=== PATIENT | male | born 1945 | race Caucasian/White ===

== ENCOUNTER 2019-12-07 11:10 | Outpatient (REF) | payer MEDICARE, OTHER, SELFPAY ==
[2019-12-07 14:11] LABS: Hematocrit 44.3 % (42-52); Hemoglobin 14.9 g/dl (14.0-18.0); Mean Corpuscular HGB Conc 33.6 g/dl (31.0-36.0); Mean Corpuscular Volume 95.1 fL (80-98); Mean Platelet Volume 12.8 fL (9.4-12.4); Platelet Count 210 X10*3/uL (160-400); Red Blood Count 4.66 X10*6/uL (4.60-5.80); Red Cell Distribution Width 12.8 % (11.0-16.0); White Blood Count 7.3 X10*3/uL (4.8-10.8)
[2019-12-07 14:22] LABS: Glucose Urine UA NEG (NEG); Leukocyte Esterase Urine NEG (NEG); Nitrite Urine NEG (NEG); Specific Gravity - Urine 1.015 (1.005-1.025); Urine Blood NEG (NEG); Urine Ketones NEG (NEG); Urine Protein 1+ MG/DL (NEG-TRACE)
[2019-12-07 14:27] LABS: Appearance Urine CLEAR; Color Urine YELLOW
[2019-12-07 14:42] LABS: Alanine Aminotransferase 17 U/L (0-40); Albumin Level 4.6 g/dL (3.5-5.0); Alkaline Phosphatase 70 U/L (39-117); Anion Gap 16 (12-20); Aspartate Amino Transferase 25 U/L (5-37); Bilirubin Total 1.5 mg/dL (0.0-1.0); Blood Urea Nitrogen 10 mg/dL (9-16); Calcium 9.6 mg/dL (8.4-10.2); Carbon Dioxide 27 mmol/L (22-29); Chloride 104 mmol/L (96-108); Cholesterol 196 mg/dL; Estimated Glomerular Filt Rate > 60; Glucose Fasting 108 mg/dL (60-99); HDL Cholesterol 69 mg/dL; LDL Cholesterol Calculated 107 mg/dl; Potassium 5.7 mmol/l (3.3-5.1); Sodium 141 mmol/L (135-145); Total Protein 7.4 g/dL (6.5-8.0); Triglycerides 102 mg/dL
[2019-12-07 15:17] LABS: Prostate Specific Antigen Scr 0.49 ng/mL (<0.05-4.0)
[2019-12-07 15:18] LABS: RBC Urine 0 /HPF (0); WBC Urine 0 /HPF (0-4)
== END 2019-12-07 11:11 | disposition home or self-care (01) ==
LOC: HO.10HDL 11:10
PROVIDERS: Visit Provider Internal Medicine
DX: Z00.00 Encounter for general adult medical examination without abnormal findings (principal); I10 Essential (primary) hypertension; Z12.5 Encounter for screening for malignant neoplasm of prostate
CPT/HCPCS: 36415; 80053; 80061; 81001; 81003; 82306; 84153; 85027

== ENCOUNTER 2019-12-25 17:06 | Outpatient (REF) | payer MEDICARE, OTHER, SELFPAY ==
[2019-12-25 19:02] LABS: Alanine Aminotransferase 19 U/L (0-40); Albumin Level 4.3 g/dL (3.5-5.0); Alkaline Phosphatase 68 U/L (39-117); Anion Gap 14 (12-20); Aspartate Amino Transferase 27 U/L (5-37); Bilirubin Total 0.7 mg/dL (0.0-1.0); Blood Urea Nitrogen 15 mg/dL (9-16); Calcium 9.5 mg/dL (8.4-10.2); Carbon Dioxide 29 mmol/L (22-29); Chloride 103 mmol/L (96-108); Estimated Glomerular Filt Rate > 60; Glucose Random 86 mg/dL (60-115); Potassium 5.9 mmol/l (3.3-5.1); Sodium 140 mmol/L (135-145); Total Protein 7.1 g/dL (6.5-8.0)
[2019-12-25 19:10] LABS: Prostate Specific Antigen 0.41 ng/mL (<0.05-4.0)
== END 2019-12-25 17:07 | disposition home or self-care (01) ==
LOC: HO.LAB 17:06
PROVIDERS: Visit Provider Internal Medicine
DX: Z12.5 Encounter for screening for malignant neoplasm of prostate (principal); N40.0 Benign prostatic hyperplasia without lower urinary tract symptoms; R79.89 Other specified abnormal findings of blood chemistry
CPT/HCPCS: 80053; 84153

== ENCOUNTER 2020-12-26 12:00 | Outpatient (REF) | payer MEDICARE, OTHER, SELFPAY ==
[2020-12-26 14:02] LABS: MANUAL DIFF FLAG NO
[2020-12-26 14:04] LABS: Basophils Absolute Auto 0.1 X10*3/uL (0.0-0.2); Eosinophils Absolute Auto 0.2 X10*3/uL (0.0-0.4); Eosinophils Percent Auto 3.5 % (0-4); Hematocrit 41.6 % (42-52); Hemoglobin 13.8 g/dl (14.0-18.0); Imm Gran Abs Auto 0.02 X10*3/uL (0.00-0.03); Imm Gran Pct Auto 0.3 % (0.0-0.4); Lymphocytes Absolute Auto 1.4 X10*3/uL (1.2-4.9); Lymphocytes Percent Auto 20.8 % (20-40); Mean Corpuscular HGB Conc 33.2 g/dl (31.0-36.0); Mean Corpuscular Hemoglobin 31.7 pg (27.0-33.0); Mean Corpuscular Volume 95.4 fL (80-98); Monocytes Absolute Auto 0.7 X10*3/uL (0.1-1.2); Monocytes Percent Auto 9.5 % (2-11); Neutrophils Absolute Auto 4.5 X10*3/uL (2.0-8.3); Neutrophils Percent Auto 64.9 % (45-73); Platelet Count 192 X10*3/uL (160-400); Red Blood Count 4.36 X10*6/uL (4.60-5.80); Red Cell Distribution Width 12.6 % (11.0-16.0); White Blood Count 6.9 X10*3/uL (4.8-10.8)
[2020-12-26 14:46] LABS: Alanine Aminotransferase 18 U/L (0-40); Albumin Level 4.2 g/dL (3.5-5.0); Alkaline Phosphatase 67 U/L (39-117); Anion Gap 13 (12-20); Aspartate Amino Transferase 27 U/L (5-37); Bilirubin Total 1.1 mg/dL (0.0-1.0); Blood Urea Nitrogen 16 mg/dL (9-16); Calcium 9.6 mg/dL (8.4-10.2); Carbon Dioxide 27 mmol/L (22-29); Chloride 103 mmol/L (96-108); Cholesterol 167 mg/dL; Estimated Glomerular Filt Rate > 60; Glucose Fasting 93 mg/dL (60-99); HDL Cholesterol 65 mg/dL; LDL Cholesterol Calculated 89 mg/dl; Potassium 5.4 mmol/L (3.3-5.1); Sodium 138 mmol/L (135-145); Total Protein 6.8 g/dL (6.5-8.0); Triglycerides 66 mg/dL
== END 2020-12-26 12:01 | disposition home or self-care (01) ==
LOC: HO.10HDL 12:00
PROVIDERS: Visit Provider Internal Medicine
DX: Z12.5 Encounter for screening for malignant neoplasm of prostate (principal); I10 Essential (primary) hypertension; E78.00 Pure hypercholesterolemia, unspecified
CPT/HCPCS: 36415; 80053; 80061; 84153; 85025

== ENCOUNTER 2021-12-01 12:57 | Outpatient (REF) | payer MEDICARE, OTHER, SELFPAY ==
[2021-12-01 13:43] LABS: MANUAL DIFF FLAG NO
[2021-12-01 13:47] LABS: Basophils Absolute Auto 0.1 X10*3/uL (0.0-0.2); Basophils Percent Auto 1.3 % (0-2); Eosinophils Absolute Auto 0.2 X10*3/uL (0.0-0.4); Eosinophils Percent Auto 3.3 % (0-4); Hemoglobin 13.7 g/dl (14.0-18.0); Imm Gran Abs Auto 0.02 X10*3/uL (0.00-0.03); Imm Gran Pct Auto 0.3 % (0.0-0.4); Lymphocytes Absolute Auto 1.3 X10*3/uL (1.2-4.9); Lymphocytes Percent Auto 20.8 % (20-40); Mean Corpuscular HGB Conc 33.4 g/dl (31.0-36.0); Mean Corpuscular Hemoglobin 31.6 pg (27.0-33.0); Mean Corpuscular Volume 94.7 fL (80.0-98.0); Mean Platelet Volume 12.1 fL (9.4-12.4); Monocytes Absolute Auto 0.7 X10*3/uL (0.1-1.2); Monocytes Percent Auto 10.9 % (2-11); Neutrophils Percent Auto 63.4 % (45-73); Platelet Count 175 X10*3/uL (160-400); Red Blood Count 4.33 X10*6/uL (4.60-5.80); Red Cell Distribution Width 12.6 % (11.0-16.0); White Blood Count 6.3 X10*3/uL (4.8-10.8)
[2021-12-01 14:33] LABS: Alanine Aminotransferase 16 U/L (0-40); Albumin Level 4.3 g/dL (3.5-5.0); Alkaline Phosphatase 58 U/L (39-117); Anion Gap 16 (12-20); Aspartate Amino Transferase 25 U/L (5-37); Bilirubin Total 0.9 mg/dL (0.0-1.0); Blood Urea Nitrogen 14 mg/dL (9-16); Calcium 9.4 mg/dL (8.4-10.2); Carbon Dioxide 25 mmol/L (22-29); Chloride 104 mmol/L (96-108); Cholesterol 183 mg/dL; Estimated Glomerular Filt Rate > 60; Glucose Fasting 97 mg/dL (60-99); HDL Cholesterol 70 mg/dL; LDL Cholesterol Calculated 96 mg/dl; Potassium 4.8 mmol/L (3.3-5.1); Sodium 140 mmol/L (135-145); Total Protein 6.7 g/dL (6.5-8.0); Triglycerides 86 mg/dL
[2021-12-01 14:57] LABS: Prostate Specific Antigen Scr 0.28 ng/mL (<0.05-4.0)
== END 2021-12-01 12:58 | disposition home or self-care (01) ==
LOC: HO.10HDL 12:57
PROVIDERS: Visit Provider Internal Medicine
DX: I10 Essential (primary) hypertension (principal); E78.00 Pure hypercholesterolemia, unspecified; I35.0 Nonrheumatic aortic (valve) stenosis; Z12.5 Encounter for screening for malignant neoplasm of prostate
CPT/HCPCS: 36415; 80053; 80061; 84153; 85025

== ENCOUNTER 2022-02-24 15:47 | Outpatient (REF) | payer MEDICARE, OTHER, SELFPAY ==
--- NOTE | ~2022-02-24 | XR_ITS ---
EXAMINATION: XR WRIST, RIGHT CLINICAL INFORMATION: Right wrist pain. COMPARISON: None. TECHNIQUE: 4 views of the right wrist. FINDINGS: There is significant narrowing with marginal spurring and sclerosis about the 1st carpometacarpal joint. No acute fracture or dislocation is evident. XR/XR wrist RT min 3V IMPRESSION: Significant degenerative change of the 1st carpometacarpal joint.
== END 2022-02-24 15:48 | disposition home or self-care (01) ==
LOC: HO.XRAY 15:47
PROVIDERS: PCP Internal Medicine; Visit Provider Internal Medicine
DX: M25.531 Pain in right wrist (principal)
CPT/HCPCS: 73110

== ENCOUNTER 2022-08-28 13:51 | Outpatient (REF) | payer MEDICARE, OTHER, SELFPAY ==
[2022-08-28 14:13] LABS: MANUAL DIFF FLAG NO
[2022-08-28 14:26] LABS: Basophils Absolute Auto 0.1 X10*3/uL (0.0-0.2); Eosinophils Absolute Auto 0.2 X10*3/uL (0.0-0.4); Eosinophils Percent Auto 1.8 % (0-4); Hematocrit 41.9 % (42.0-52.0); Imm Gran Abs Auto 0.07 X10*3/uL (0.00-0.03); Imm Gran Pct Auto 0.6 % (0.0-0.4); Lymphocytes Absolute Auto 1.6 X10*3/uL (1.2-4.9); Lymphocytes Percent Auto 14.2 % (20-40); Mean Corpuscular HGB Conc 33.4 g/dl (31.0-36.0); Mean Corpuscular Hemoglobin 32.1 pg (27.0-33.0); Mean Corpuscular Volume 96.1 fL (80.0-98.0); Mean Platelet Volume 11.8 fL (9.4-12.4); Monocytes Absolute Auto 1.1 X10*3/uL (0.1-1.2); Monocytes Percent Auto 9.9 % (2-11); Neutrophils Absolute Auto 7.9 x10*3/uL (2.0-8.3); Neutrophils Percent Auto 72.5 % (45-73); Platelet Count 182 X10*3/uL (160-400); Red Blood Count 4.36 X10*6/uL (4.60-5.80); Red Cell Distribution Width 12.6 % (11.0-16.0); White Blood Count 10.9 X10*3/uL (4.8-10.8)
[2022-08-28 15:07] LABS: Alanine Aminotransferase 16 U/L (0-40); Albumin Level 4.1 g/dL (3.5-5.0); Alkaline Phosphatase 66 U/L (39-117); Anion Gap 12 (12-20); Aspartate Amino Transferase 24 U/L (5-37); Bilirubin Total 1.4 mg/dL (0.0-1.0); Blood Urea Nitrogen 15 mg/dL (9-16); Carbon Dioxide 28 mmol/L (22-29); Chloride 104 mmol/L (96-108); Estimated Glomerular Filt Rate > 60; Glucose Random 83 mg/dL (60-115); Iron 77 mcg/dL (45-160); Percent Iron Saturation 26 % (15-50); Potassium 4.6 mmol/L (3.3-5.1); Sodium 139 mmol/L (135-145); Total Iron Binding Capacity 299 mcg/dL (228-428); Total Protein 6.9 g/dL (6.5-8.0); Unsaturated Iron Binding 222 ug/dL
== END 2022-08-28 13:52 | disposition home or self-care (01) ==
LOC: HO.LAB 13:51
PROVIDERS: PCP Internal Medicine; Visit Provider Internal Medicine
DX: D64.9 Anemia, unspecified (principal); R63.4 Abnormal weight loss; E78.00 Pure hypercholesterolemia, unspecified
CPT/HCPCS: 36415; 80053; 83540; 85025

== ENCOUNTER 2022-11-05 03:59 | Emergency (ER) | payer MEDICARE, OTHER, SELFPAY ==
--- NOTE | 2022-11-05 06:52 | ED_ITS ---
HPI - Chest Pain General Stated Complaint: Chest Pain Time Seen by Provider: 11/05/22 06:39 Source: patient Mode of arrival: ambulatory Limitations: no limitations History of Present Illness HPI narrative: 77 year old male with history of aortic stenosis and hyperlipidemia, on lisinopril and pravastatin, followed by science analyst, presents to ER with for evaluation of intermittent chest tightness. Patient states that since Friday 11/03, he has had 3 episodes of what feels like a dull squeeze with tingling localized to upper chest, bilateral shoulders, and radiating through arms stopping at elbows. Reports that the episodes last a few minutes and have occurred with rest. Reports the sensation came on last night while turning in bed, unsure if it awoke him. Reports the sensation has completely resolved at this point. Denies any associated symptoms including sweating, lightheadedness, palpitations, dyspnea, shortness of breath, leg swelling, pain elsewhere. Reports a remote history of similar episodes nearly 20 years ago, though a diagnosis was never made. Reports that he works out consistently, has not recently changed his routine. Reports he takes aspirin occasionally, though he stopped taking it a couple weeks ago. Denies any smoking history. Occasional alcohol intake. No cardiac surgeries or family history of sudden cardiac . MD complaint: chest discomfort Pertinent past history: other (aortic stenosis) Onset (ago): day(s) Timing of current episode: episodic and now resolved Prior episodes: Yes Onset: during rest Pain location: other (Upper chest, bilateral upper extremities) Pain radiation: left shoulder, left scapula and other (Radiates through bilateral UE, stopping at elbows) Severity: similar to previous episodes Quality: tightness, aching and dull Related Data Allergies Allergy/AdvReac Type Severity Reaction Status Date / Time No Known Allergies Allergy Unverified 11/16/19 14:43 Review of Systems 2 Review of Systems: Yes all other systems are reviewed and are negative [facility] Social History Social History Advance Directives: Yes Advance Directives on File: Yes Advance Directives Date on File: 12/07/19 Physical Exam 2 Const: General: cooperative, healthy appearing, comfortable and no acute distress Nutritional Appearance: average body habitus O rientation/consciousness: patient oriented x3 Resp: Effort & Inspection: normal respiratory effort and able to speak in complete sentences Auscultation: clear to auscultation bilaterally Cardio: Rate: regular rate Rhythm: regular rhythm Heart sounds: Murmur heart sound present (Blowing systolic murmur in right upper sternal border) GI: Palpation (GI): Soft to palpation Skin: Other: Skin is pink, warm, dry. Neuro: General: patient oriented x3 Extrem: General: Yes normal to inspection and Yes no pedal edema Medical Decision Making Medical Decision Making MDM Narrative: 77 year old male with history of aortic stenosis and hyperlipidemia presents for evaluation of intermittent chest tightness, currently resolved. Physical exam reveals comfortable-appearing, fully-oriented male speaking in full sentences. Skin is pink, warm, dry. Systolic murmur appreciated in right upper sternal border. Otherwise regular rate, rhythm. Lung sounds clear to ausculation. Workup including troponins, CBC, CMP unremarkable. Heart score of 3. EKG x2 show no ST segment elevation or depression. Patient would like to go home and follow up with his science analyst Will discharge home with instructions to follow up with science analyst for outpatient echocardiogram & further evaluation, planning for TAVR in the future. Differential Diagnosis Differential Diagnoses: The differential diagnosis associated with the presentation includes STEMI, NSTEMI, unstable angina, atrial fibrillation, other arrhythmias, pulmonary embolism, SVC syndrome, cervical radiculopathy Admission/Observation Consideration of admission/observation: Escalation of care including admission/observation considered Lab Data [facility] Lab Attestation statement: I reviewed the patient's lab results. trop negative 11/05/22 04:36 11/05/22 04:36 Labs: Lab Results 11/05/22 Range/Units 04:36 WBC 7.0 (4.8-10.8) X10*3/uL RBC 4.32 L (4.60-5.80) X10*6/uL Hgb 13.9 L (14.0-18.0) g/dl Hct 41.1 L (42.0-52.0) % MCV 95.1 (80.0-98.0) fL MCH 32.2 (27.0-33.0) pg MCHC 33.8 (31.0-36.0) g/dl RDW 12.5 (11.0-16.0) % Plt Count 178 (160-400) X10*3/uL MPV 12.1 (9.4-12.4) fL Immature Gran % (Auto) 0.3 (0.0-0.4) % Neut % (Auto) 52.6 (45-73) % Lymph % (Auto) 27.7 (20-40) % [place] % (Auto) 12.8 H (2-11) % Eos % (Auto) 5.0 H (0-4) % Baso % (Auto) 1.6 (0-2) % Lymph # (Auto) 1.9 (1.2-4.9) X10*3/uL [place] # (Auto) 0.9 (0.1-1.2) X10*3/uL Eos # (Auto) 0.4 (0.0-0.4) X10*3/uL Baso # (Auto) 0.1 (0.0-0.2) X10*3/uL Abs Immat Gran (auto) 0.02 (0.00-0.03) X10*3/uL Absolute Neuts (auto) 3.7 (2.0-8.3) x10*3/uL Absolute Nucleated RBC 0.000 (0.0-0.012) X10*3/uL Nucleated RBC % (auto) 0.0 (0.0-0.2) /100WBC Sodium 140 (135-145) mmol/L Potassium 4.6 (3.3-5.1) mmol/L Chloride 106 (96-108) mmol/L Carbon Dioxide 27 (22-29) mmol/L Anion Gap 12 (12-20) BUN 13 (9-16) mg/dL Creatinine 0.86 (0.5-1.4) mg/dL Estim Creat Clear Calc TNP Estimated GFR > 60 Random Glucose 100 (60-115) mg/dL Calcium 9.8 (8.4-10.2) mg/dL Total Bilirubin 0.8 (0.0-1.0) mg/dL AST 28 (5-37) U/L ALT 17 (0-40) U/L Alkaline Phosphatase 62 (39-117) U/L Troponin I High Sens 6.5 (<3.5-35.0) ng/L Total Protein 7.0 (6.5-8.0) g/dL Albumin 4.2 (3.5-5.0) g/dL Independent Interpretation I performed an independent interpretation of an: EKG Interpretation: I have reviewed the patient's EKG readings. EKG 1 (11/05/22 at 04:17): undetermined rhythm, ventricular rate 65, PACs present, no ST segment elevations or depressions EKG 2 (11/05/22 at 07:59): sinus bradycardia, ventricular rate 56, MT interval 188 ms, sinus arrhythmia, no ST segment elevation or depressions Independent Historian Clinical information obtained from an independent historian. History obtained from or confirmed by: Spouse Tests considered The following testing was considered but not selected: considered cxr, lungs clear, patient would like to go home Prescription Management I considered prescription management with: Pain Medication Chronic Conditions Patient?s care impacted by: Other (aortic stenosis) Scores Heart Score History: -0- slightly suspicious ECG: -0- normal Age: -2- > or = 65 Risk factory: -1- 1 or 2 risk factors Troponin: -0- < or = normal limit Score: 3 Risk: 1.7% Critical Care Time Critical Care Time Critical Care Time: No Discharge Plan Discharge Clinical Impression: Atypical chest pain Patient Disposition: Home, Self-Care Instructions: Chest Pain (DC) Additional Instructions: Your lab workup today was unremarkable. It did not show any signs of stress or damage to the heart. Your EKG did not show any evidence of damage to the heart either. Follow-up with your science analyst as soon as possible. If you develop new or worsening symptoms call 911 or come back to the ER for further evaluation. Interventions: ED Discharge Assessment Last Done: 11/05/22 08:37 Discharge Date/Time: 11/05/22 08:37
[2022-11-05 06:59] LABS: MANUAL DIFF FLAG NO
[2022-11-05 07:02] LABS: Basophils Absolute Auto 0.1 X10*3/uL (0.0-0.2); Basophils Percent Auto 1.6 % (0-2); Eosinophils Absolute Auto 0.4 X10*3/uL (0.0-0.4); Hematocrit 41.1 % (42.0-52.0); Hemoglobin 13.9 g/dl (14.0-18.0); Imm Gran Abs Auto 0.02 X10*3/uL (0.00-0.03); Imm Gran Pct Auto 0.3 % (0.0-0.4); Lymphocytes Absolute Auto 1.9 X10*3/uL (1.2-4.9); Lymphocytes Percent Auto 27.7 % (20-40); Mean Corpuscular HGB Conc 33.8 g/dl (31.0-36.0); Mean Corpuscular Hemoglobin 32.2 pg (27.0-33.0); Mean Corpuscular Volume 95.1 fL (80.0-98.0); Mean Platelet Volume 12.1 fL (9.4-12.4); Monocytes Absolute Auto 0.9 X10*3/uL (0.1-1.2); Monocytes Percent Auto 12.8 % (2-11); Neutrophils Absolute Auto 3.7 x10*3/uL (2.0-8.3); Neutrophils Percent Auto 52.6 % (45-73); Platelet Count 178 X10*3/uL (160-400); Red Blood Count 4.32 X10*6/uL (4.60-5.80); Red Cell Distribution Width 12.5 % (11.0-16.0)
--- NOTE | 2022-11-05 07:02 | ECG_ITS ---
Test Reason : CHEST PAIN Blood Pressure : / mmHG Vent. Rate : 065 BPM Atrial Rate : 070 BPM P-R Int : 000 ms QRS Dur : 080 ms QT Int : 444 ms P-R-T Axes : 000 009 000 degrees QTc Int : 461 ms Poor data quality, interpretation may be adversely affected Normal sinus rhythm with PAC's Left ventricular hypertrophy with repolarization abnormality ( Sokolow-Joiner ) Abnormal ECG When compared with ECG of 15-JAN-2008 07:33, Premature atrial complexes are now Present Referred By: Shanell Lara Electronically Signed By:ABDIEL CARR
[2022-11-05 07:10] LABS: Alanine Aminotransferase 17 U/L (0-40); Anion Gap 12 (12-20); Aspartate Amino Transferase 28 U/L (5-37); Bilirubin Total 0.8 mg/dL (0.0-1.0); Blood Urea Nitrogen 13 mg/dL (9-16); Carbon Dioxide 27 mmol/L (22-29); Chloride 106 mmol/L (96-108); Estimated Glomerular Filt Rate > 60; Glucose Random 100 mg/dL (60-115); Potassium 4.6 mmol/L (3.3-5.1); Sodium 140 mmol/L (135-145)
[2022-11-05 07:11] LABS: Albumin Level 4.2 g/dL (3.5-5.0); Alkaline Phosphatase 62 U/L (39-117); Troponin-I High Sensitivity 6.5 ng/L (<3.5-35.0)
[2022-11-05 07:27] LABS: Calcium 9.8 mg/dL (8.4-10.2)
--- NOTE | 2022-11-05 08:38 | PC.NURSE ---
VITALS ON DISCHARGE 115/61,51,98%RA 97.8 ORAL
== END 2022-11-05 08:37 | disposition home or self-care (01) ==
PROVIDERS: Emergency Provider Emergency Medicine
DX: R07.89 Other chest pain (principal); Z79.899 Other long term (current) drug therapy
CPT/HCPCS: 36415; 80053; 84484; 85025; 93005; 99283

== ENCOUNTER 2022-12-21 10:09 | Outpatient (REF) | payer MEDICARE, OTHER, SELFPAY ==
[2022-12-21 10:36] LABS: MANUAL DIFF FLAG NO
[2022-12-21 10:51] LABS: Basophils Absolute Auto 0.1 X10*3/uL (0.0-0.2); Basophils Percent Auto 1.7 % (0-2); Eosinophils Absolute Auto 0.3 X10*3/uL (0.0-0.4); Eosinophils Percent Auto 6.8 % (0-4); Hematocrit 41.9 % (42.0-52.0); Hemoglobin 13.9 g/dl (14.0-18.0); Imm Gran Abs Auto 0.01 X10*3/uL (0.00-0.03); Imm Gran Pct Auto 0.2 % (0.0-0.4); Lymphocytes Absolute Auto 1.5 X10*3/uL (1.2-4.9); Lymphocytes Percent Auto 30.9 % (20-40); Mean Corpuscular HGB Conc 33.2 g/dl (31.0-36.0); Mean Corpuscular Hemoglobin 31.7 pg (27.0-33.0); Mean Corpuscular Volume 95.7 fL (80.0-98.0); Mean Platelet Volume 11.6 fL (9.4-12.4); Monocytes Absolute Auto 0.6 X10*3/uL (0.1-1.2); Monocytes Percent Auto 13.1 % (2-11); Neutrophils Absolute Auto 2.2 x10*3/uL (2.0-8.3); Neutrophils Percent Auto 47.3 % (45-73); Platelet Count 184 X10*3/uL (160-400); Red Blood Count 4.38 X10*6/uL (4.60-5.80); Red Cell Distribution Width 12.9 % (11.0-16.0); White Blood Count 4.7 X10*3/uL (4.8-10.8)
[2022-12-21 11:33] LABS: Alanine Aminotransferase 14 U/L (0-40); Albumin Level 4.1 g/dL (3.5-5.0); Alkaline Phosphatase 63 U/L (39-117); Anion Gap 10 (12-20); Aspartate Amino Transferase 23 U/L (5-37); Blood Urea Nitrogen 11 mg/dL (9-16); Calcium 9.6 mg/dL (8.4-10.2); Carbon Dioxide 28 mmol/L (22-29); Chloride 108 mmol/L (96-108); Cholesterol 173 mg/dL (<200); Estimated Glomerular Filt Rate > 60; Glucose Fasting 103 mg/dL (60-99); HDL Cholesterol 66 mg/dL (>40); LDL Cholesterol Calculated 91 mg/dL (<100); Potassium 5.1 mmol/L (3.3-5.1); Sodium 141 mmol/L (135-145); Total Protein 6.7 g/dL (6.5-8.0); Triglycerides 83 mg/dL (<150)
[2022-12-21 11:40] LABS: Prostate Specific Antigen Scr 0.29 ng/mL (<0.05-4.0)
== END 2022-12-21 10:10 | disposition home or self-care (01) ==
LOC: HO.LAB 10:09
PROVIDERS: PCP Internal Medicine; Visit Provider Internal Medicine
DX: I35.0 Nonrheumatic aortic (valve) stenosis (principal); E78.00 Pure hypercholesterolemia, unspecified; R35.1 Nocturia; Z12.5 Encounter for screening for malignant neoplasm of prostate
CPT/HCPCS: 36415; 80053; 80061; 84153; 85025

== ENCOUNTER 2023-01-01 10:27 | Outpatient (REF) | payer MEDICARE, OTHER, SELFPAY ==
[2023-01-01 10:48] LABS: MANUAL DIFF FLAG NO
[2023-01-01 11:41] LABS: Basophils Absolute Auto 0.1 X10*3/uL (0.0-0.2); Basophils Percent Auto 1.4 % (0-2); Eosinophils Absolute Auto 0.3 X10*3/uL (0.0-0.4); Eosinophils Percent Auto 4.6 % (0-4); Hematocrit 42.2 % (42.0-52.0); Hemoglobin 13.9 g/dl (14.0-18.0); Imm Gran Abs Auto 0.01 X10*3/uL (0.00-0.03); Imm Gran Pct Auto 0.2 % (0.0-0.4); Lymphocytes Absolute Auto 1.6 X10*3/uL (1.2-4.9); Lymphocytes Percent Auto 27.2 % (20-40); Mean Corpuscular HGB Conc 32.9 g/dl (31.0-36.0); Mean Corpuscular Hemoglobin 31.5 pg (27.0-33.0); Mean Corpuscular Volume 95.7 fL (80.0-98.0); Mean Platelet Volume 12.1 fL (9.4-12.4); Monocytes Absolute Auto 0.8 X10*3/uL (0.1-1.2); Neutrophils Absolute Auto 3.1 x10*3/uL (2.0-8.3); Neutrophils Percent Auto 53.6 % (45-73); Platelet Count 188 X10*3/uL (160-400); Red Blood Count 4.41 X10*6/uL (4.60-5.80); Red Cell Distribution Width 12.6 % (11.0-16.0); White Blood Count 5.8 X10*3/uL (4.8-10.8)
[2023-01-01 11:45] LABS: INTERNATIONAL NORM RATIO 0.9 (0.9-1.1); Prothrombin Time 11.2 SEC (11.1-13.3)
[2023-01-01 12:49] LABS: Anion Gap 11 (12-20); Blood Urea Nitrogen 12 mg/dL (9-16); Calcium 9.6 mg/dL (8.4-10.2); Carbon Dioxide 27 mmol/L (22-29); Chloride 106 mmol/L (96-108); Estimated Glomerular Filt Rate > 60; Glucose Random 103 mg/dL (60-115); Sodium 139 mmol/L (135-145)
[2023-01-05 16:42] LABS: NT-proBNP 951 pg/mL (<450)
== END 2023-01-01 10:28 | disposition home or self-care (01) ==
LOC: HO.LAB 10:27
PROVIDERS: PCP Internal Medicine; Visit Provider Internal Medicine Cardiovascular Disease
DX: I35.0 Nonrheumatic aortic (valve) stenosis (principal); I35.1 Nonrheumatic aortic (valve) insufficiency; I10 Essential (primary) hypertension
CPT/HCPCS: 36415; 80048; 83880; 85025; 85610

== ENCOUNTER 2023-04-12 13:45 | Outpatient (REF) | payer MEDICARE, OTHER, SELFPAY ==
--- NOTE | ~2023-04-12 | XR_ITS ---
EXAMINATION: XR CHEST CLINICAL INFORMATION: Congested, cough COMPARISON: None available. TECHNIQUE: 2 views of the chest were obtained. FINDINGS: No significant abnormality is noted involving the heart, lungs, mediastinum or soft tissues. There is severe degenerative change of the left glenohumeral joint with [id number] appearance. XR/XR chest 2V IMPRESSION: No acute cardiopulmonary disease.
== END 2023-04-12 13:46 | disposition home or self-care (01) ==
LOC: HO.XRAY 13:45
PROVIDERS: PCP Internal Medicine; Visit Provider Internal Medicine
DX: R05.9 Cough, unspecified (principal)
CPT/HCPCS: 71046

== ENCOUNTER 2023-07-12 16:19 | Outpatient (REF) | payer MEDICARE, OTHER, SELFPAY ==
--- NOTE | ~2023-07-12 | XR_ITS ---
EXAMINATION: XR WRIST, RIGHT CLINICAL INFORMATION: Right wrist pain. COMPARISON: 02/24/2022. TECHNIQUE: Four views of the right wrist. FINDINGS: Severe degenerative changes in the first carpometacarpal joint with joint space narrowing, hypertrophic change and subluxation. Bones are diffusely demineralized. Narrowing of the radiocarpal space. Subtle focal cortical prominence along the radial aspect of the radial styloid may be related to chronic/degenerative process or prior trauma. Correlation with clinical exam recommended to determine further management. XR/XR wrist RT min 3V IMPRESSION: 1. Severe degenerative changes first carpometacarpal joint. 2. Subtle focal cortical prominence along the radial aspect of the radial styloid may be related to chronic/degenerative process or prior trauma. Correlation with clinical exam recommended to determine further management including possible additional imaging with CT scan if there is concern for fracture.
== END 2023-07-12 16:20 | disposition home or self-care (01) ==
LOC: HO.XRAY 16:19
PROVIDERS: PCP Internal Medicine; Visit Provider Internal Medicine
DX: M25.531 Pain in right wrist (principal)
CPT/HCPCS: 73110

== ENCOUNTER 2023-11-17 08:30 | Outpatient (RCR) | payer MEDICARE, OTHER, SELFPAY | END 2023-11-24 06:49 | disposition home or self-care (01) | LOC: HO.CR 08:30 | PROVIDERS: PCP Internal Medicine; Visit Provider Physician Assistant Surgical | DX: Z95.4 Presence of other heart-valve replacement (principal) | CPT/HCPCS: 93798 ==

== ENCOUNTER 2023-12-24 09:47 | Outpatient (REF) | payer MEDICARE, OTHER, SELFPAY ==
[2023-12-24 10:07] LABS: MANUAL DIFF FLAG NO
[2023-12-24 10:15] LABS: Basophils Absolute Auto 0.1 X10*3/uL (0.0-0.2); Basophils Percent Auto 1.4 % (0-2); Eosinophils Absolute Auto 0.4 X10*3/uL (0.0-0.4); Eosinophils Percent Auto 6.6 % (0-4); Hematocrit 42.5 % (42.0-52.0); Hemoglobin 14.2 g/dl (14.0-18.0); Imm Gran Abs Auto 0.01 X10*3/uL (0.00-0.03); Imm Gran Pct Auto 0.2 % (0.0-0.4); Lymphocytes Absolute Auto 1.3 X10*3/uL (1.2-4.9); Lymphocytes Percent Auto 22.1 % (20-40); Mean Corpuscular HGB Conc 33.4 g/dl (31.0-36.0); Mean Corpuscular Hemoglobin 31.4 pg (27.0-33.0); Mean Platelet Volume 10.9 fL (9.4-12.4); Monocytes Absolute Auto 0.7 X10*3/uL (0.1-1.2); Monocytes Percent Auto 11.5 % (2-11); Neutrophils Absolute Auto 3.5 x10*3/uL (2.0-8.3); Neutrophils Percent Auto 58.2 % (45-73); Platelet Count 240 X10*3/uL (160-400); Red Blood Count 4.52 X10*6/uL (4.60-5.80); White Blood Count 5.9 X10*3/uL (4.8-10.8)
[2023-12-24 10:42] LABS: Alanine Aminotransferase 17 U/L (0-40); Albumin Level 4.1 g/dL (3.5-5.0); Alkaline Phosphatase 71 U/L (39-117); Anion Gap 10 (12-20); Aspartate Amino Transferase 33 U/L (5-37); Bilirubin Total 0.9 mg/dL (0.0-1.0); Blood Urea Nitrogen 13 mg/dL (9-16); Calcium 9.3 mg/dL (8.4-10.2); Carbon Dioxide 27 mmol/L (22-29); Chloride 106 mmol/L (96-108); Cholesterol 180 mg/dL (<200); Estimated Glomerular Filt Rate > 60; Glucose Fasting 117 mg/dL (60-99); HDL Cholesterol 74 mg/dL (>40); LDL Cholesterol Calculated 88 mg/dL (<100); Potassium 4.4 mmol/L (3.3-5.1); Sodium 139 mmol/L (135-145); Triglycerides 92 mg/dL (<150)
[2023-12-24 11:03] LABS: Prostate Specific Antigen Scr 0.34 ng/mL (<0.05-4.0)
== END 2023-12-24 09:48 | disposition home or self-care (01) ==
LOC: HO.10HDL 09:47
PROVIDERS: Visit Provider Internal Medicine
DX: Z00.00 Encounter for general adult medical examination without abnormal findings (principal); I10 Essential (primary) hypertension; Z12.5 Encounter for screening for malignant neoplasm of prostate
CPT/HCPCS: 36415; 80053; 80061; 84153; 85025

== ENCOUNTER 2024-03-29 10:42 | Outpatient (REF) | payer MEDICARE, OTHER, SELFPAY ==
--- OUTSIDE RECORDS SUMMARY | 2024-03-29 12:48 | XMS_ITS | Data Portability ---
Author Organization [facility], [facility] Address [address] [place] [address] Assessment No assessment recorded. Plan of Treatment Reminders Order Date Submit Date Provider Last Modified By Organization Details Last Modified Time Details Appointments None record ed. Lab None record ed. Referral None record ed. Procedures None record ed. Surgeries None record ed. Imaging None record ed. Medication Orders None record ed. Patient TargetsNo targets recorded. Patient InstructionsNo instructions recorded. Reason for Referral None Reported. Results Created Date Observation Date Name Description Value Unit Range Abnormal Flag Note LastModifiedBy Organization Detail LastModifiedTime 03/20/19 25 03/20/2024 XR, shoul everardo, 2 or more view http:/ [email or web address] ?Encry pted=s hAaTro YD8dLq bEUv6g %2BXZw aYqtaq 0bqfl% 2Fg9IQ a4ajBk vP9nXo QUaueC m3YtLR FvZlgJ JJ8mAn HZtai3 [id number] AC0Kqb 32MUaC kKiQtr MwF INTERFACE [facility] [address] [facility] [address], [place], [address], 03/20/2024 10:22:50 03/20/19 25 03/20/2024 XR, shoul everardo, 2 or more view http:/ [email or web address] ?Encry pted=s hAaTro YD8dLq bEUv6g %2BXZw aYqtaq 0bqfl% 2Fg9IQ a4ajBk vP9nXo QUaueC m3YtLR FvZlgJ JJ8mAn HZtai3 9o9959 AC0Kqb 32MUaC kKiQtr MwF INTERFACE [facility] [address], [place], [address], 03/20/2024 10:22:52 Result Notes None recorded. Problems Name Problem SNOMED Code Status Onset Date Resolution Date Notes Provider Name and Address Organization Details Recorded Time Osteoarthrosis of the carpometacarpal joint of the thumb 87217478 Active 2023 Esther Hyman [employer]PERVIS[employer] [address], [place], [address], [facility] 4 14:54:33 Problem Notes None recorded. Procedures Surgical History Date Name Laterality Status Provider Name and Address Organization Details Recorded Time Small Joint Kenalog Injection, L/R completed Esther Hyman [employer]PER[employer] [address], [place], [address], [facility] 07/19/2023 14:54:25 Imaging Results Imaging Date Name Status LastModified by Organiz ation Details LastModified Time 03/20/2024 XR, shoulder, 2 or more view completed INTERFACE [facility] [address], [place], [address], 03/20/2024 10:22:50 03/20/2024 XR, shoulder, 2 or more view completed INTERFACE [facility] [address] [employer] [address] [employer], [place], [address], 03/20/2024 10:22:52 Procedure Notes None recorded. Medical Equipment None Reported. Allergies No known drug allergies Medications Name Sig Start Date Stop Date Status Note LastModified by Organization Details LastModified Time amoxicillin 500 mg capsule TAKE 4 CAPSULES BY MOUTH 1 HOUR PRIOR TO APPOINTME NT 03/20 completed Not Available Not Available Not Available furosemide 40 mg tablet TAKE 1 TABLET BY MOUTH EVERY DAY FOR 5 DAYS 03/20 completed Not Available Not Available Not Available neomycin-po lymyxin-hyd rocort 3.5 mg/mL-10,00 0 unit/mL-1 % ear solution INSTILL 2 DROPS TO AFFECTED EAR FOUR TIMES DAILY NEEDED 03/20 completed Not Available Not Available Not Available prednisone 10 mg tablet active Not Available Not Available Not Available ketoconazol e 2 % shampoo APPLY TOPICALLY TO THE SCALP 3 TO 4 TIMES WEEKLY. LET SIT FOR 5 MINUTES BEFORE WASHING OUT. ALTERNATE WITH ANOTHER OTC ANTI-DAND RUFF SHAMPOO 03/20 completed Not Available Not Available Not Available pravastatin 40 mg tablet TAKE 1 TABLET BY MOUTH EVERY DAY active Not Available Not Available No t Available amiodarone 200 mg tablet TAKE 1 TABLET BY MOUTH TWO TIMES A DAY FOR 20 DAYS active Not Available Not Available No t Available codeine 10 mg-guaifene sin 100 mg/5 mL oral liquid TAKE 5 ML BY MOUTH FOUR TIMES DAILY NEEDED 03/20 completed Not Available Not Available Not Available gabapentin 100 mg capsule TAKE 1 CAPSULE BY MOUTH THREE TIMES A DAY FOR 5 DAYS 03/20 completed Not Available Not Available Not Available ketoconazol e 2 % topical cream APPLY TOPICALLY TO THE AFFECTED AREA TWICE DAILY UNTIL GONE NEEDED FOR FACIAL RASH OR FLARES 03/20 completed Not Available Not Available Not Available betamethaso ne dipropionat e 0.05 % lotion active Not Available Not Available Not Available lisinopril 2.5 mg tablet TAKE 1 TABLET BY MOUTH DAILY active Not Available Not Available No t Available metoprolol tartrate 25 mg tablet TAKE 1/2 TABLET BY MOUTH 2 TIMES A DAY active Not Available Not Available No t Available Vitals Date Recorded Body height Body mass index (BMI) Body weight Provider Name and Address Organization Details Last Updated DateTime 07/19/2023 165.1 cm 25 kg/m2 12756.86 g NALLELY [facility] 07/19/2023 14:23:11 Date Recorded Body height Body mass index (BMI) Body weight Provider Name and Address Organization Details Last Updated DateTime 03/20/2024 165.1 cm 25 kg/m2 26325.86 g COOPER ROSS [facility] 03/20/2024 10:12:21 Social History None recorded. Functional Status None recorded. Mental Status None recorded. Family History Nothing Reported. Medical History Condition Response Allergies/Hayfever N Coronary Artery Disease N Anxiety/Depression N Breathing or lung disorders N Emphysema N Nerve Disorders N Thyroid Problems N COPD N Pacemaker N Anemia N Kidney/Bladder Problems N Vascular Disease N Heart Trouble Y Heart Attack (AL) N Gastrointestinal Disease N Cholesterol N Diabetes N Autoimmune disease N Bleeding Disorder N Inflammatory Joint disease N Orthotics N Arthritis N Seizures/Epilepsy N Blood Clot N AIDS/HIV N Congestive Heart Failure (CHF) N Acid Reflux (GERD) N Cancer Y Stroke N Asthma N Circulation Problems N Peripheral Vascular Disease N Sleep Apnea N Hepatitis N Heart Disease N Rheumatoid Arthritis N Arrhythmia N Pulmonary Embolism N Headaches N Fibromyalgia N Hypertension N Osteoporosis N Past Encounters Encounter ID Performer Location Encounter Start Date Encounter Closed Date Diagnosis/Indication Diagnosis SNOMED-CT Code Diagnosis ICD10 Code Diagnosis Note [id number] Esther Liorkim, [employer] SUPERVIS[employer] [facility] [address] [place] [address] 07/19/2023 14:01:23 07/30/2023 09:57:50 Osteoarthrosis of the carpometacarpal joint of the thumb 24737605 M18.9 [id number] [facility] [address] [place] [address] 03/20/2024 10:05:53 03/28/2024 16:11:32 Pain of left shoulder joint [id number] 4824901 M25.512 Osteoarthr itis of left glenohumeral joint 8283136776 726258 M19.012 Health Concerns Section Related Observation LastModified by Organization Detai ls LastModified Time None Recorded Concern Status LastModified by Organization Details LastModified Time None Recorded Advance Directives Directive None Recorded Payers Encounter Date Sequence Insurance Name Policy Number Policy [employer] Covered Member ID Hopkins Member ID Guarantor Name 07/19/2023 1 [place] [employer] Rey Bailey [id number] Rye Bailey 07/19/2023 2 [facility] - PLAN 1 (MEDICARE SUPPLEMENT) [id number] Rey Bailey [id number] Rey Bailey Notes Date Note Type Note Provider Name and Address Organization Details Recorded Time 07/19/2023 text/html Uri is a pleasant 78-year-old gentleman who presents today for evaluation of his right thumb. He had a previous cortisone injection for first [facility] arthritis which gave him about a year relief. He is here today for further evaluation. Esther Hyman, [employer] SUPERVISOR [address] [facility] [address], [place], [address], [facility] [place] [facility] 07/19/2023 14:54:56
[2024-03-29 14:01] LABS: Anion Gap 12 (12-20); Blood Urea Nitrogen 15 mg/dL (9-16); Calcium 9.6 mg/dL (8.4-10.2); Carbon Dioxide 27 mmol/L (22-29); Chloride 104 mmol/L (96-108); Estimated Glomerular Filt Rate > 60; Glucose Random 105 mg/dL (60-115); Potassium 4.9 mmol/L (3.3-5.1); Sodium 138 mmol/L (135-145)
[2024-03-29 14:04] LABS: Estimated Average Glucose 103 mg/dL; Hemoglobin A1C 121.8888 umol/L; Hemoglobin A1c % 5.2 % (<6.0); Total Hemoglobin (HGBA1C) 3606.2026 umol/L
== END 2024-03-29 10:43 | disposition home or self-care (01) ==
LOC: HO.10HDL 10:42
PROVIDERS: Visit Provider Internal Medicine
DX: I10 Essential (primary) hypertension (principal); R73.03 Prediabetes
CPT/HCPCS: 36415; 80048; 83036

== ENCOUNTER 2024-07-03 13:41 | Outpatient (AMB) | payer MEDICARE, OTHER, SELFPAY ==
--- NOTE | 2024-07-03 13:45 | A.OFFPC_ITS ---
Vital Signs 07/03/24 13:55 Height 5 ft 6 in Weight 148 lb BMI 23.9 BP 104/66 Respiration 16 Pulse 68 Pulse Source Pulse Oximeter Temp 97.7 F Temp Source Oral Pulse Oximetry (%) 98 Oxygen Delivery Method Room Air Intake Visit Reasons: Routine Gambling Monitor Required: No Accompanied by: Self / Same As Patient Allergies No Known Allergies Allergy (Unverified 07/03/24 14:25) Medication List - Last Reconciled 07/03/24 by Javy Pierre MD lisinopril 2.5 mg PO DAILY pravastatin 40 mg PO DAILY Tobacco use date assessed: 07/03/24 Fall risk assessment: No Falls in past year Last assessed Fall Risk: 07/03/24 Dental Screening Dental Screen Date: 07/03/24 Did you have a dental visit in the last 12 months?: Yes Did you have a dental problem in the last 6 months where you did not have access to dental care?: No Was dental information given to patient?: Patient has dentist [facility] Medical History (Updated 07/03/24 @ 14:26 by Javy Pierre MD) Coronary artery disease Aortic stenosis Hyperlipidemia Essential hypertension Family History Mother No problems noted. Father No problems noted. Social History Housing: House Alcohol intake: current Alcohol intake frequency: a few times a month Patient Tobacco Use Status: Never used Tobacco Advance Directives Date on File: 12/07/19 service: No Current occupational status: retired Cognitive needs: No Hearing needs: No Vision needs: Yes (Reading glasses) Questionnaire PHQ-9 Over the last 2 weeks, how often have you been bothered by any of the following problems? 1. Little interest or pleasure in doing things: not at all 2. Feeling down, depressed, or hopeless: not at all 3. Trouble falling or staying asleep, or sleeping too much: not at all 4. Feeling tired or having little energy: not at all 5. Poor appetite or overeating: not at all 6. Feeling bad about yourself - or that you are a failure or have let yourself or your family down: not at all 7. Trouble concentrating on things, such as reading the newspaper or watching television: not at all 8. Moving or speaking so slowly that other people could have noticed. Or the opposite - being so fidgety or restless that you have been moving around a lot more than usual: not at all 9. Thoughts that you would be better off or of hurting yourself in some way: not at all Total score: 0 Depression Screening Interpretation: Negative Depression Screening Done: Yes Source: Developed by Drs. Zain Morris, Deyanira Souza, Cliff Gil and colleagues, with an educational eduard from [employer]. Thrive Questionnaire Date Thrive assessed: 07/03/24 I am a: Patient What is your living situation today?: I have a steady place to live Within the past 12 months, did the food you bought not last and you didn't have the money to get more?: Never true Within the past 12 months, did you worry whether your food would run out before you got money to buy more?: Never true Do you have trouble paying for medicines?: No Do you have trouble getting transportation to medical appointments?: No Do you have trouble paying your heating and electricity bill?: No Do you have trouble taking care of your child, family member or friend?: No Do you have trouble with day-to-day activities such as bathing, preparing meals, shopping, managing finances, etc.?: No Are you currently unemployed and looking for a job?: No Are you interested in more education?: No Please select the resources that you would like help with: None THRIVE Score: 0 AUDIT C Alcohol Use Questionnaire (AUDIT-C) 1. How often do you have a drink containing alcohol?: Monthly or less Total Score: 1 YULISA-7 AMB Questionnaire YULISA-7 Date YULISA - 7 assessed: 07/03/24 Feeling nervous, anxious, or on edge: 0 = Not at all Not being able to stop or control worryin = Not at all Worrying too much about different things: 0 = Not at all Trouble relaxin = Not at all Being so restless that it is hard to sit still: 0 = Not at all Becoming easily annoyed or irritable: 0 = Not at all Feeling afraid as if something awful might happen: 0 = Not at all Total YULISA-7 score (0-4 normal; 5-9 mild; 10-14 moderate; 15-21 severe): 0 Source: Developed by Drs. Zain Morris, Deyanira Souza, Cliff Gil and colleagues, with an educational eduard from [employer]. Physical exam (Primary Care) Vital Signs: Last Vital Signs Temp 97.7 F 07/03/24 13:55 Pulse 68 07/03/24 13:55 Resp 16 07/03/24 13:55 BP 104/66 07/03/24 13:55 Pulse Ox 98 07/03/24 13:55 Oxygen Delivery Method Room Air 07/03/24 13:55 Care Plan Goal for BP management: BP in range BMI result Body Mass Index 23.9 Tobacco/Smoking Status: Tobacco use Status Tobacco use date assessed 07/03/24 07/03/24 13:48 Patient Tobacco Use Status Never used Tobacco 07/03/24 13:54 PHQ-9: PHQ-9 Score PHQ-9: Total score 0 07/03/24 13:48 Depression Screening Interpretation: Negative Thrive Assessment: Date of Thrive Assessment Date Thrive assessed 07/03/24 07/03/24 13:48 Advance Care Planning discussion: Exists, not on file Date of discussion: 07/03/24 Who was present: Patient Forms completed: Health Care Proxy Coding Level of Care Code New Pt Level 4 (79140) Complex EM visit Add On G2211 Diagnoses Essential hypertension I10 Aortic stenosis I35.0 Coronary artery disease I25.10 Hyperlipidemia E78.5 Additional Codes Vital Signs *Quality* - Advance Care Planning discussion: Exists, not on file ([id number]) Assessment & Plan Assessment & Plan (1) Essential hypertension: Code(s): I10 - Essential (primary) hypertension Category: Medical Plan: BP in range. Continue meds at same dosage. (2) Aortic stenosis: Code(s): I35.0 - Nonrheumatic aortic (valve) stenosis Category: Medical Plan: Pt had a bipass and aortic valve replacement (3) Coronary artery disease: Code(s): I25.10 - Atherosclerotic heart disease of [place] coronary artery without angina pectoris Category: Medical Plan: Condition is stable. (4) Hyperlipidemia: Code(s): E78.5 - Hyperlipidemia, unspecified Category: Medical Plan History of Present Illness The patient is an 79-year-old male presenting with a routine wellness visit. He has a past medical history of hypertension, managed with lisinopril 2.5 mg daily, and hyperlipidemia, for which he takes a statin at a 40 mg dose. His blood pressure reading today is noted to be 104/68 mmHg, suggesting good control of his hypertension, and the patient does not express concerns regarding elevated pressures or related symptoms. His cardiac history is significant for severe aortic valve stenosis, for which he underwent an open valve replacement last summer. Prior to surgery, the patient was largely asymptomatic, continuing regular physical exertion without issue. Despite this, evaluations indicated the stenosis had progressed to a critical level, necessitating surgical intervention. He opted for the traditional open surgery based on his ripening room hand's recommendation, despite having the minimally invasive TAVR as an option. Post-surgery, the patient has resumed his pre-operative level of physical activity, including cycling and maintaining a routine of walking for 45 minutes. He reports no issues with his recovery and remains under regular follow-up with his ripening room hand Dr. Taylor. Social History - Active lifestyle with consistent engagement in bicycling and walking. - Participation in wellness programs. 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 Review of Systems - Cardiovascular: Denies current chest pain, dyspnea, or fatigue. - Musculoskeletal: Reports ability to perform activities such as cycling and walking without limitation. - General: Denies new concerns. Physical Exam General: Cooperative and healthy appearing Nutritional Appearance: Well nourished Orientation/consciousness: Patient oriented x3 Limitations: No limitations Head: Normal to inspection General: Appearance normal, both eyes and all related structures Neck: Normal visual inspection Chest: Normal palpation of entire chest wall Respiratory: N ormal respiratory effort Neurology: Patient oriented x3, no neurological deficits noted. Results Plan 1. Hypertension - Continue lisinopril 2.5 mg daily. 2. Hyperlipidemia - Maintain statin therapy at 40 mg. 3. Aortic Valve Stenosis - Status post open aortic valve replacement. - Follow-up with ripening room hand as scheduled. Discussion Notes I discussed with the patient the management of his chronic conditions, specifically hypertension and hyperlipidemia. He is to continue his current medications: lisinopril 2.5 mg and a statin at 40 mg. We reviewed his cardiac history post-aortic valve replacement, ensuring that he continues follow-up with ripening room hand Dr. Taylor. There were no new symptoms or changes noted. The patient is advised to continue his exercise regimen and wellness activities as tolerated. Patient Instructions - Continue taking lisinopril 2.5 mg and statin 40 mg as prescribed. - Maintain current activity levels, including biking and walking. - Follow up with ripening room hand as instructed. - Have routine blood work done prior to the next annual visit. - Return to clinic in November for next annual wellness examination.
[2024-07-03 13:55] VITALS: BP 104/66; PULSE 68; RESP 16; TEMP 36.5; O2SAT 98; BMI 23.9
--- OUTSIDE RECORDS SUMMARY | 2024-07-03 15:12 | XMS_ITS | Data Portability ---
Author Organization [place] - [facility], [facility] Address [address] [place] [address] Assessment No assessment recorded. Plan of Treatment Reminders Order Date Submit Date Provider Last Modified By Organization Details Last Modified Time Details Appointments None recorded. Lab None recorded. Referral None recorded. Procedures None recorded. Surgeries total shoulder arthroplast y (SURG) 2024 025 [email or web address] Not available 17:25:48 Imaging XR, shoulder, 2 or more view - L shoulder 4 view rm 214 2024 025 [email or web address] [facility], [address], [place], [address], 16:11:32 Medication Orders None recorded. Patient TargetsNo targets recorded. Patient InstructionsNo instructions recorded. Reason for Referral None Reported. Results Created Date Observation Date Name Description Value Unit Range Abnormal Flag Note LastModifiedBy Organization Detail LastModifiedTime 03/20/1903/20/2024 XR, shoul everardo, 2 or more view http:/ [email or web address] ?Encry pted=s hAaTro YD8dLq bEUv6g %2BXZw aYqtaq 0bqfl% 2Fg9IQ a4ajBk vP9nXo QUaueC m3YtLR FvZlgJ JJ8mAn HZtai3 0f5791 AC0Kqb 32MUaC kKiQtr MwF INTERFACE [facility] [address], [place], [address], 03/20/2024 10:22:50 03/20/19 25 03/20/2024 XR, shoul everardo, 2 or more view http:/ [email or web address] ?Encry pted=s hALidyao YD8dLq bEUv6g %2BXZw aYqtaq 0bqfl% 2Fg9IQ a4ajBk vP9nXo QUaueC m3YtLR FvZlgJ JJ8mAn HZtai3 4y4179 AC0Kqb 32MUaC kKiQtr MwF INTERFACE [facility] [address], [place], [address], 03/20/2024 10:22:52 Result Notes None recorded. Problems Name Problem SNOMED Code Status Onset Date Resolution Date Notes Provider Name and Address Organization Details Recorded Time Osteoarthrosis of the carpometacarpal joint of the thumb [id number] Active 2023 Esther Hyman CNP [address], [place], [address], [facility] 14:54:33 Problem Notes None recorded. Procedures Surgical History Date Name Laterality Status Provider Name and Address Organization Details Recorded Time 5 Sports Shoulder 4&1 completed Kannan Braden PA-C [address], [place], [address], [facility] 04/26/2024 10:42:45 4 Small Joint Kenalog Injection, L/R completed Esther Hyman CNP [address], [place], [address], [facility] 07/19/2023 14:54:25 Imaging Results Imaging Date Name Status LastModified by Organ [facility] Details LastModified Time 03/20/2024 XR, shoulder, 2 or more view completed INTERFACE [facility] [address], [place], [address], 03/20/2024 10:22:50 03/20/2024 XR, shoulder, 2 or more view completed INTERFACE [facility] [address], [place], [address], 03/20/2024 10:22:52 Procedure Notes None recorded. Medical [...] Updated DateTime 07/19/2023 165.1 cm 25 kg/m2 20113.86 g NALLELY GAMEZ [place] Saul N [facility] 07/19/2023 14:23:11 Date Recorded Body height Body mass index (BMI) Body weight Provider Name and Address Organization Details Last Updated DateTime 03/20/2024 165.1 cm 25 kg/m2 98755.86 g COOPERCARLOS SEYMOUREIRO [facility] 03/20/2024 10:12:21 Date Recorded Body height Body mass index (BMI) Body weight Provider Name and Address Organization Details Last Updated DateTime 04/26/2024 165.1 cm 25 kg/m2 52389.86 g Capri Ross [facility] 04/26/2024 13:12:29 Social History None recorded. Functional Status None recorded. Mental Status None recorded. Family History Nothing Reported. Medical History Condition Response Allergies/Hayfever N Coronary Artery Disease N Anxiety/Depression N Breathing or lung disorders N Emphysema N Nerve Disorders N Thyroid Problems N COPD N Pacemaker N Anemia N Kidney/Bladder Problems N Vascular Disease N Heart Trouble Y Heart Attack ([place]) N Gastrointestinal Disease N Cholesterol N Diabetes [...] SNOMED-CT Code Diagnosis ICD10 Code Diagnosis Note [id number] [facility] [address] [address] [place] [address] 07/19/2023 14:01:23 07/30/2023 09:57:50 Osteoarthrosis of the carpometacarpal joint of the thumb 78178109 M18.9 [id number] MD VICKIE Kelly - [address] [place] [address] 03/20/2024 10:05:53 03/28/2024 16:11:32 Pain of left shoulder joint 4378699134 3071507 M25.512 Osteoarthr itis of left glenohumeral joint 1367761621 406632 M19.560 [id number] LEANN Montalvo [address] [place] [address] 04/26/2024 13:03:06 05/14/2024 11:41:26 Osteoarthritis of joint of left shoulder region 5303068892 29161 M19.012 Health Concerns Section Related Observation LastModified by Organization Detai ls LastModified Time None Recorded Concern Status LastModified by Organization Details LastModified Time None Recorded Advance Directives Directive None Recorded Payers Encounter Date Sequence Insurance Name Policy Number Policy Hopkins Covered Member ID Hopkins Member ID Guarantor Name 07/19/2023 1 [place]: [facility] Rey L Boulder [id number] Rey L Boulder 07/19/2023 2 [facility] - PLAN 1 (MEDICARE SUPPLEMENT) [id number] Rey L L Boulder [id number] Rey L Boulder 03/20/2024 1 MED[place]: [employer] Rey L Boulder [id number] Rey L Boulder 03/20/2024 2 [facility] - PLAN 1 (MEDICARE SUPPLEMENT) [id number] Rey L L Boulder [id number] Rey L Boulder 04/26/2024 1 MED[place]: [facility] Rey L Boulder [id number] Rey L Boulder 04/26/2024 2 [facility] - PLAN 1 (MEDICARE SUPPLEMENT) [id number] Rey L L Boulder [id number] Rey L Boulder Notes Date Note Type Note Provider Name and Address Organization Details Recorded Time 07/19/2023 text/html Uri is a pleasa nt 78-year-old gentleman who presents today for evaluation of his right thumb. He had a previous cortisone injection for first [facility] arthritis which gave him about a year relief. He is here today for further evaluation. Esther Hyman, SOCIAL SCIENCES DEPARTMENT CHAIR [address], [place], [address], [facility] [place] [facility] 07/19/2023 14:54:56 03/20/2024 text/html Chief Complaint: Left shoulder pain HPI: This is a 78-year-old gentleman who presents to clinic today for evaluation of left shoulder complaints. Notes a history of recurrent dislocations in the past, ultimately treated with an open stabilization procedure. Shoulder has been stable since, but over the past many years, he describes worsening range of motion and increasing pain. Aware of crepitus. Takes occasional Tylenol for this. Has had cortisone injections for this 8 to 10 years ago, but notes that these did not really help and he did not repeat them. Has been doing some home exercises for the shoulder with no change in motion or pain. Here today for formal evaluation. PMH: ASCVD status post CABG in August 2023, basal cell carcinoma PSH: Left shoulder open stabilization 1961, back surgery 1987 Meds: Lisinopril, amiodarone, metoprolol, pravastatin Allergies: No known drug allergies Social Hx: Retired. , with children. Denies tobacco or alcohol use. Family Hx: noncontributory ROS: Negative x12 except as noted above in the HPI Past family, medical, social history and review of systems have been reviewed and updated on the medical history sheet saved to the patient's chart. A 12-point review of systems is negative x12 except as noted above and/or on the medical history sheet. Examination: Pleasant 78-year-old gentleman in no acute distress. 5 feet 6 inches, 150 pounds. On exam of the Left upper extremity, skin over the shoulder is intact. No effusion, no gross atrophy. No point tenderness to palpation. Active forward elevation 90, passive 150. Passive external rotation 30 with negative ER lag. Internal rotation L2. 5/5 strength with scaption, IR, ER. Some discomfort with external rotation, less so with empty can. Positive Yergason's. Sensation intact in an axillary distribution. Fires EPL, FPL and intrinsics. Hand is warm and well-perfused. Imaginv of the Left shoulder ordered and obtained at [facility] today were reviewed during the visit. These demonstrate severe glenohumeral arthritis with complete loss glenohumeral joint space. Some medialization of the joint line. Type II if not type III acromion. No brenton proximal migration humeral head. A2 versus B3 glenoid morphology, at least moderate glenoid retroversion and posterior subluxation suggested on axillary view. Impression: 78-year-old hvbhs-zszv-gqconudy gentleman with history of previous open Bankart stabilization surgery now with end-stage left glenohumeral arthritis. Plan: Findings and options for management reviewed with the patient. He has had a course of conservative treatment to this point, including cortisone injections in the past, more recent use of oral medications. Discussed that definitive management would entail a shoulder replacement operation, in his case specifically a reverse total shoulder arthroplasty given history of open stabilization, glenoid deformity, joint line medialization. Given history of ASCVD status post CABG a year ago, would recommend that we do this in the hospital setting, though reasonable candidate for same-day surgery as long as he is stable. Would require medical clearance as well as a 3D CT scan for preoperative planning purposes. [employer] speech recognition chemical engraver software was used to create portions of this document. An attempt at proofreading has been made to minimize errors. Please call for corrections. Aliyah Fallon MD [address] [place] [address] [address] [facility], [place], [address], [facility] 04/06/2024 16:07:45 04/26/2024 text/html I am seeing the patient today under the supervision of {{Sharron* Brothers Lub desire Ramos}} who was available but who did not see the patient. HPI: Patient returns for follow-up of left shoulder pain. Patient has noted glenohumeral joint arthritis of the left shoulder. Patient has been doing well with conservative management. Past family, medical, social history and review of systems has been reviewed, updated and is located in the patient? s chart. Examination: The patient is well appearing and in no apparent distress. Alert and oriented x3. Gait is symmetric. No significant swelling warmth or erythema of the left shoulder. Range of motion of the shoulder: Decrease in all planes with pain and crepitus. 4-5 strength of the left shoulder. Peripheral, vascular, lymphatic examination, skin, neurological, coordination, reflexes, sensation are within normal limits. Impression: Glenohumeral joint arthritis of the left shoulder. Plan: Reviewed diagnosis with the patient today in the office. Discussed role of conservative management versus total shoulder arthroplasty. Activity modification discussed. P.rharini Garcia or NSAIDs can be used. Discussed the role of injection therapies. Injected the glenohumeral joint of the left shoulder. Follow up p.r.n. Kannan Braden PA-C [address], [place], [address], [facility] [place] [facility] 04/26/2024 14:04:28
== END 2024-07-03 14:11 | disposition home or self-care (01) ==
LOC: HO.HMCHD 13:41
PROVIDERS: PCP Internal Medicine; Visit Provider Internal Medicine
DX: I10 Essential (primary) hypertension (principal); I35.0 Nonrheumatic aortic (valve) stenosis; I25.10 Atherosclerotic heart disease of native coronary artery without angina pectoris; E78.5 Hyperlipidemia, unspecified; Z00.00 Encounter for general adult medical examination without abnormal findings

== ENCOUNTER → 2024-07-03 13:41 | Outpatient (BNVA) | payer MEDICARE, OTHER, SELFPAY | PROVIDERS: PCP Internal Medicine; Visit Provider Internal Medicine | DX: I10 Essential (primary) hypertension (principal); I35.0 Nonrheumatic aortic (valve) stenosis; I25.10 Atherosclerotic heart disease of native coronary artery without angina pectoris; E78.5 Hyperlipidemia, unspecified | CPT/HCPCS: 99202 ==

== ENCOUNTER 2024-07-14 11:38 | Outpatient (AMB) | payer MEDICARE, OTHER, SELFPAY ==
--- NOTE | 2024-07-14 11:42 | MHC.PC.OV ---
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 The patient underwent AVR with open heart surgery on 09/08/2023 dye to severe . Surgery performed by Dr. Tran (follows with Dr. Hodges in cardiology). He has been doing well postoperatively but has noticed a bulge to the left side of the inferior aspect of the surgical scar. He noticed this after lifting anchors for his boat. It is nontender. No overlying redness. No fevers or chills. It has not grown in size. He has not yet followed up with cardiology/surgery regarding this. [facility] Medical History (Updated 07/14/24 @ 12:03 by AHMET Lin) Coronary artery disease Aortic stenosis Hyperlipidemia Essential hypertension Surgical History (Updated 07/14/24 @ 12:24 by AHMET Lin) S/P AVR Family History Mother No problems noted. Father No problems noted. Social History Housing: House Alcohol intake: current Alcohol intake frequency: a few times a month Patient Tobacco Use Status: Never used Tobacco Advance Directives Date on File: 12/07/19 service: No Current occupational status: retired Cognitive needs: No Hearing needs: No Vision needs: Yes (Reading glasses) Questionnaire Thrive Questionnaire Date Thrive assessed: 07/03/24 YULISA-7 AMB Questionnaire YULISA-7 Date YULISA - 7 assessed: 07/03/24 Source: Developed by Drs. Zain Morris, Deyanira Souza, Cliff Gil and colleagues, with an educational eduard from [employer]. Review of Systems Const All systems reviewed & are unremarkable except as noted in HPI and below Physical exam (Primary Care) Vital Signs: Last Vital Signs Temp 97.4 F 07/14/24 11:45 Pulse 60 07/14/24 11:45 Resp 16 07/14/24 11:45 BP 112/80 07/14/24 11:45 Pulse Ox 97 07/14/24 11:45 Oxygen Delivery Method Room Air 07/14/24 11:45 BMI result Body Mass Index 22.9 Tobacco/Smoking Status: Tobacco use Status Tobacco use date assessed 07/03/24 07/14/24 11:47 Patient Tobacco Use Status Never used Tobacco 07/14/24 11:47 Thrive Assessment: Date of Thrive Assessment Date Thrive assessed 07/03/24 07/14/24 11:47 Const Other: Constitutional - Awake and Alert, No apparent distress Respiratory - Normal lung expansion, Normal respiratory effort, No respiratory distress Chest - quarter sized bulge abutting the left side of the inferior aspect of the surgical scar, increased in size with valsalva, reducible and nontender. no overlying erythema Skin - Warm/Dry Neurological - Alert & oriented Coding Level of Care Code Est Pt Level 4 (34786) Complex EM visit Add On G2211 Diagnoses Ventral hernia K43.9 Aortic stenosis I35.0 Hyperlipidemia E78.5 Essential hypertension I10 Assessment & Plan Assessment & Plan (1) Ventral hernia: Code(s): K43.9 - Ventral hernia without obstruction or gangrene Category: Medical Plan: Stable, no evidence of incarceration or strangulation, related to scarring following open aortic valve replacement. At this time, suspect no intervention is needed, watchful waiting advice. However he is recommended to contact his cardiac surgeon. (2) Aortic stenosis: Code(s): I35.0 - Nonrheumatic aortic (valve) stenosis Category: Medical Plan: S/p open aortic valve replacement. Stable. Follow-up with Cardiology and Cardiac surgery as scheduled (3) Hyperlipidemia: Code(s): E78.5 - Hyperlipidemia, unspecified Category: Medical Plan: Lipid panel ordered to be assessed at follow-up visit. Continue pravastatin 40 mg daily. (4) Essential hypertension: Code(s): I10 - Essential (primary) hypertension Category: Medical Plan: Controlled. Continue lisinopril 2.5 mg daily. Plan Follow-up in November as scheduled for annual exam. Labs to be completed prior to visit. Patient Instructions: Your bulge is consistent iwth a ventral hernia/hernia related to post surgical scarring. This is reducible which is reassuring. Call Dr. Wilkes's office to see if any intervention is necessary, but I suspect none will be indicated. Otherwise follow up for your echo and cardiology appointment as scheduled
[2024-07-14 11:45] VITALS: BP 112/80; PULSE 60; RESP 16; TEMP 36.3; O2SAT 97; BMI 22.9
--- OUTSIDE RECORDS SUMMARY | 2024-07-14 11:50 | XMS_ITS | Data Portability ---
Author Organization [place] - [facility], [facility] Address [address] [place] [address] Assessment No assessment recorded. Plan of Treatment [...] 214 2024 025 [address] [facility], [address] [facility], [place], [address], 16:11:32 Medication Orders None recorded. Patient TargetsNo targets recorded. Patient InstructionsNo instructions recorded. Reason for Referral None Reported. Results Created Date Observation Date Name Description Value Unit Range Abnormal Flag Note LastModifiedBy Organization Detail LastModifiedTime 03/20/1903/20/2024 XR, shoul everardo, 2 or more view http:/ [email or web address] ?Encry pted=s hAaTro YD8dLq bEUv6g %2BXZw aYqtaq 0bqfl% 2Fg9IQ a4ajBk vP9nXo QUaueC m3YtLR FvZlgJ JJ8mAn HZtai3 9m0779 AC0Kqb 32MUaC kKiQtr MwF INTERFACE [facility] [address], [place], [address], 03/20/2024 10:22:50 03/20/19 25 03/20/2024 XR, shoul everardo, 2 or more view http:/ [email or web address] ?Encry pted=s hALidyao YD8dLq bEUv6g %2BXZw aYqtaq 0bqfl% 2Fg9IQ a4ajBk vP9nXo QUaueC m3YtLR FvZlgJ JJ8mAn HZtai3 5p7213 AC0Kqb 32MUaC kKiQtr MwF INTERFACE [facility] [address], [place], [address], 03/20/2024 10:22:52 Result Notes None recorded. Problems Name Problem SNOMED Code Status Onset Date Resolution Date Notes Provider Name and Address Organization Details Recorded Time Osteoarthrosis of the carpometacarpal joint of the thumb 53172392 Active 2023 Esther Hyman CNP [address], [place], [address], [facility] 14:54:33 Problem Notes None recorded. Procedures Surgical History Date Name Laterality Status Provider Name and Address Organization Details Recorded Time 5 Sports Shoulder 4&1 completed Kannan Braden PA-C [address], [place], [address], [facility] 04/26/2024 10:42:45 4 Small Joint Kenalog Injection, L/R completed Esther Hyman CNP [address], [place], [address], [facility] 07/19/2023 14:54:25 Imaging Results Imaging Date Name Status LastModified by [facility] Details LastModified Time 03/20/2024 XR, shoulder, 2 or more view completed INTERFACE [facility] [address], [place], [address], 03/20/2024 10:22:50 03/20/2024 XR, shoulder, 2 or more view completed INTERFACE [facility] [address] [facility] [address], [place], [address], 03/20/2024 10:22:52 Procedure Notes None recorded. Medical [...] Updated DateTime 07/19/2023 165.1 cm 25 kg/m2 79025.86 g NALLELY GAMEZ [facility] 07/19/2023 14:23:11 Date Recorded Body height Body mass index (BMI) Body weight Provider Name and Address Organization Details Last Updated DateTime 03/20/2024 165.1 cm 25 kg/m2 10533.86 g COOPERCARLOS SEYMOUREIRO [facility] 03/20/2024 10:12:21 Date Recorded Body height Body mass index (BMI) Body weight Provider Name and Address Organization Details Last Updated DateTime 04/26/2024 165.1 cm 25 kg/m2 36140.86 g Capri Ross [facility] 04/26/2024 13:12:29 Social History None recorded. Functional Status None recorded. Mental Status None recorded. Family History Nothing Reported. Medical History Condition Response Allergies/Hayfever N Coronary Artery Disease N Anxiety/Depression N Breathing or lung disorders N Emphysema N Nerve Disorders N Thyroid Problems N COPD N Pacemaker N Anemia N Kidney/Bladder Problems N Vascular Disease N Heart Trouble Y Heart Attack ([place]) N Gastrointestinal Disease N Cholesterol N Diabetes [...] SNOMED-CT Code Diagnosis ICD10 Code Diagnosis Note [id number] Esther Hyman CNP [facility]3][address] [place] [address] 07/19/2023 14:01:23 07/30/2023 09:57:50 Osteoarthrosis of the carpometacarpal joint of the thumb 84951351 M18.9 [id number] MD VICKIE Kelly - [address] [place] [address] 03/20/2024 10:05:53 03/28/2024 16:11:32 Pain of left shoulder joint 7946655215 7109019 M25.512 Osteoarthr itis of left glenohumeral joint 2408105835 235517 M19.196 [id number] LEANN Montalvo [address] [place] [address] 04/26/2024 13:03:06 05/14/2024 11:41:26 Osteoarthritis of joint of left shoulder region 5655347046 90286 M19.012 Health Concerns Section Related Observation LastModified by Organization Detai ls LastModified Time None Recorded Concern Status LastModified by Organization Details LastModified Time None Recorded Advance Directives Directive None Recorded Payers Encounter Date Sequence Insurance Name Policy Number Policy Hopkins Covered Member ID Hopkins Member ID Guarantor Name 07/19/2023 1 MEDICARE B-NE: [facility] Rey L [place] [id number] Rey L [place] 07/19/2023 2 [facility] - PLAN 1 (MEDICARE SUPPLEMENT) [id number] Rey L L [place] [id number] Rey L [place] 03/20/2024 1 MEDICARE B-NE: [employer]ATIONAL [employer] SERVICES Rey L [place] [id number] Rey L [place] 03/20/2024 2 [facility] - PLAN 1 (MEDICARE SUPPLEMENT) [id number] 1 Rey L L [place] [id number] Rey L [place] 04/26/2024 1 MEDICARE B-NE: [facility] SERVICES Rey L [place] [id number] Rey L [place] 04/26/2024 2 [facility] - PLAN 1 (MEDICARE SUPPLEMENT) [id number] Rey L L [place] [id number] Rey L [place] Notes Date Note Type Note Provider Name and Address Organization Details Recorded Time 07/19/2023 text/html Uri is a pleasa nt 78-year-old gentleman who presents today for evaluation of his right thumb. He had a previous cortisone injection for first [facility] arthritis which gave him about a year relief. He is here today for further evaluation. Esther Hyman, DANCE COSTUME DESIGNER [address], [place], [address], [facility] 07/19/2023 14:54:56 03/20/2024 text/html [...] the Left shoulder ordered and obtained at [facility] today were reviewed during the visit. These demonstrate severe glenohumeral arthritis with complete loss glenohumeral joint space. Some medialization of the joint line. Type II if not type III acromion. No brenton proximal migration humeral head. A2 versus B3 glenoid morphology, at least moderate glenoid retroversion and posterior subluxation suggested on axillary view. Impression: 78-year-old hazel-iwxp-eqlarsqz gentleman with history of previous open Bankart [...] 3D CT scan for preoperative planning purposes. [employer] speech recognition partition assembler software was used to create portions of this document. An attempt at proofreading has been made to minimize errors. Please call for corrections. Aliyah Fallon MD [address] [place] [address] [address] [facility], [place], [address], [facility] 04/06/2024 16:07:45 04/26/2024 text/html I am seeing [...] Follow up p.r.n. Kannan Braden PA-C [address], [place], [address], [facility] 04/26/2024 14:04:28
== END 2024-07-14 13:02 | disposition home or self-care (01) ==
PROVIDERS: PCP Internal Medicine; Visit Provider Physician Assistant
DX: K43.9 Ventral hernia without obstruction or gangrene (principal); I35.0 Nonrheumatic aortic (valve) stenosis; E78.5 Hyperlipidemia, unspecified; I10 Essential (primary) hypertension

== ENCOUNTER → 2024-07-14 11:38 | Outpatient (BNVA) | payer MEDICARE, OTHER, SELFPAY | PROVIDERS: PCP Internal Medicine; Visit Provider Physician Assistant | DX: K43.9 Ventral hernia without obstruction or gangrene (principal); I35.0 Nonrheumatic aortic (valve) stenosis; E78.5 Hyperlipidemia, unspecified; I10 Essential (primary) hypertension; Z79.899 Other long term (current) drug therapy; Z95.2 Presence of prosthetic heart valve | CPT/HCPCS: 99212 ==

== ENCOUNTER 2024-12-18 10:47 | Outpatient (REF) | payer MEDICARE, OTHER, SELFPAY ==
[2024-12-18 11:24] LABS: Hematocrit 41.0 % (42.0-52.0); Hemoglobin 13.5 g/dl (14.0-18.0); Mean Corpuscular HGB Conc 32.9 g/dl (31.0-36.0); Mean Corpuscular Hemoglobin 31.4 pg (27.0-33.0); Mean Corpuscular Volume 95.3 fL (80.0-98.0); NRBC Abs Auto 0.000 X10*3/uL (0.0-0.012); NRBC Pct Auto 0.0 /100WBC (0.0-0.2); Platelet Count 212 X10*3/uL (160-400); Red Blood Count 4.30 X10*6/uL (4.60-5.80); White Blood Count 7.8 X10*3/uL (4.8-10.8)
[2024-12-18 12:14] LABS: Alanine Aminotransferase 19 U/L (0-40); Albumin Level 4.5 g/dL (3.5-5.0); Alkaline Phosphatase 69 U/L (39-117); Anion Gap 14 (12-20); Aspartate Amino Transferase 32 U/L (5-37); Blood Urea Nitrogen 13 mg/dL (9-16); Calcium 9.2 mg/dL (8.4-10.2); Carbon Dioxide 27 mmol/L (22-29); Chloride 103 mmol/L (96-108); Cholesterol 190 mg/dL (<200); Estimated Glomerular Filt Rate > 60; HDL Cholesterol 73 mg/dL (>40); Potassium 4.7 mmol/L (3.3-5.1); Sodium 139 mmol/L (135-145); Thyroid Stimulating Hormone 2.15 uIU/mL (0.32-4.0); Total Protein 7.0 g/dL (6.5-8.0); Triglycerides 82 mg/dL (<150)
[2024-12-18 12:32] LABS: Appearance Urine Clear; Glucose Urine UA Negative (Negative); PH 6.5 (5.0-9.0); Specific Gravity - Urine 1.010 (1.005-1.025)
== END 2024-12-18 10:48 | disposition home or self-care (01) ==
LOC: HO.LAB 10:47
PROVIDERS: Visit Provider Internal Medicine
DX: I10 Essential (primary) hypertension (principal); I35.0 Nonrheumatic aortic (valve) stenosis
CPT/HCPCS: 36415; 80048; 80061; 80076; 81003; 84443; 85027

== ENCOUNTER 2024-12-22 08:32 | Outpatient (AMB) | payer MEDICARE, OTHER, SELFPAY ==
--- NOTE | 2024-12-22 08:30 | A.OFFPC_ITS ---
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 Accompanied by: Self / Same As Patient Allergies No Known Allergies Allergy (Verified 12/22/24 08:32) Medication List - Last Reconciled 12/22/24 by AHMET Lin aspirin 81 mg PO DAILY lisinopril 2.5 mg PO DAILY pravastatin 40 mg PO DAILY Tobacco use date assessed: 12/22/24 Fall risk assessment: No Falls in past year Last assessed Fall Risk: 12/22/24 Dental Screening Dental Screen Date: 12/22/24 Did you have a dental visit in the last 12 months?: Yes Did you have a dental problem in the last 6 months where you did not have access to dental care?: No HPI HPI Comments History of Present Illness Details 79 year old male with history of aortic stenosis s/p AVR, hypertension, and hyperlipidemia, and ventral hernia presenting to the office for management of chronic conditions and annual physical exam. He lives at home as with the and feels safe there. He is happily retired. He does exercise by walking daily and indoor biking at least an hour daily. Following healthy diet. Reports rare alcohol use. No cigarette smoking. No illicit drugs or marijuana. CAD//HLD- follows with Dr. Hodges and Dr Tran. s/p AVR but no PCI/CABG. ASA, pravastatin Ventral hernia- saw Dr. Tran at [facility], postsurgical. Observation HTN- BP 120/76. On lisinopril 2.5mg Microcytic anemia-likely chronic disease Concerns: Reviewed blood work Health maintenance: No longer undergoing colonoscopies Reviewed past medical, surgical, family, social history ROS: General: No fevers, malaise, unintentional weight loss HEENT: No blurred vision, diplopia. No sore throat, nasal congestion, rhinorrhea, sinus pain, ear pain. No hearing loss Neck - no adenopathy Cardiovascular: No chest pain, palpitations, or leg edema Respiratory: No shortness of breath, wheezing, cough GI: No dysphagia, odynophagia, globus sensation. No abdominal pain, nausea, vomiting, diarrhea, constipation, melena, hematochezia : No dysuria, hematuria, increased urinary frequency, decreased urinary output. No testicular swelling or pain. No penile discharge MSK: No myalgia, back pain, arthralgias Neuro: No headaches, weakness, paresthesias Psych: no depression/anxiery. No AH/VH. No SI/HI Skin: No rashes or lesions EXAM: Constitutional - Awake and Alert, No apparent distress Eyes - PERRLA, EOMI. Anicteric Ears - external ears normal, canals clear, TMs intact and pearly magallanes with good cone of light Nose- septum midline, nares clear, no sinus tenderness Mouth/throat- mucosa moist, tongue and uvula midline, no erythema/edema or t onsillar adenopathy. Neck-trachea midline, thyroid symmetric without palpable nodules, no adenopathy Cardiovascular - S1S2, RRR, No edema Respiratory - Normal lung expansion, Normal respiratory effort, No respiratory distress, CTA bilaterally Gastrointestinal - NT / ND; +BS; No rebound or guarding - No CVA tenderness Extremities - no calf tenderness bilaterally, no swelling Musculoskeletal - Normal inspection, normal ROM Skin - Warm/Dry, no concerning lesions Neurological - Alert & oriented x3, CN II-XII in tact, 5/5 strength BUE and BLE, 2+ patellar reflexes, sensation intact Psychological - Appropriate affect [facility] Medical History Microcytic anemia Coronary artery disease Aortic stenosis Hyperlipidemia Essential hypertension Surgical History S/P AVR Family History Mother No problems noted. Father No problems noted. Social History Housing: House Alcohol intake: current Alcohol intake frequency: a few times a month Patient Tobacco Use Status: Never used Tobacco e-Cigarette/Vaping Use: Never Used Advance Directives Date on File: 12/07/19 service: No Current occupational status: retired Cognitive needs: No Hearing needs: No Vision needs: Yes (Reading glasses) Questionnaire PHQ-9 Over the last 2 weeks, how often have you been bothered by any of the following problems? 1. Little interest or pleasure in doing things: not at all 2. Feeling down, depressed, or hopeless: not at all 3. Trouble falling or staying asleep, or sleeping too much: not at all 4. Feeling tired or having little energy: not at all 5. Poor appetite or overeating: not at all 6. Feeling bad about yourself - or that you are a failure or have let yourself or your family down: not at all 7. Trouble concentrating on things, such as reading the newspaper or watching television: not at all 8. Moving or speaking so slowly that other people could have noticed. Or the opposite - being so fidgety or restless that you have been moving around a lot more than usual: not at all 9. Thoughts that you would be better off or of hurting yourself in some way: not at all Total score: 0 Source: Developed by Drs. Zain Morris, Deyanira Souza, Cliff Gil and colleagues, with an educational eduard from [email or web address]. Thrive Questionnaire Date Thrive assessed: 12/22/24 I am a: Patient Within the past 12 months, did the food you bought not last and you didn't have the money to get more?: Never true Within the past 12 months, did you worry whether your food would run out before you got money to buy more?: Never true Do you have trouble paying for medicines?: No Do you have trouble getting transportation to medical appointments?: No Do you have trouble paying your heating and electricity bill?: No Do you have trouble taking care of your child, family member or friend?: No Do you have trouble with day-to-day activities such as bathing, preparing meals, shopping, managing finances, etc.?: No Are you currently unemployed and looking for a job?: No Are you interested in more education?: No THRIVE Score: 0 AUDIT C Alcohol Use Questionnaire (AUDIT-C) 1. How often do you have a drink containing alcohol?: Monthly or less 2. How many drinks containing alcohol do you have on a typical day when you are drinking?: 1 or 2 3. How often do you have six or more drinks on one occasion?: Less than monthly Total Score: 2 YULISA-7 AMB Questionnaire YULISA-7 Date YULISA - 7 assessed: 12/22/24 Feeling nervous, anxious, or on edge: 0 = Not at all Not being able to stop or control worryin = Not at all Worrying too much about different things: 0 = Not at all Trouble relaxin = Not at all Being so restless that it is hard to sit still: 0 = Not at all Becoming easily annoyed or irritable: 0 = Not at all Feeling afraid as if something awful might happen: 0 = Not at all Total YULISA-7 score (0-4 normal; 5-9 mild; 10-14 moderate; 15-21 severe): 0 Source: Developed by Drs. Zain Morris, Deyanira Souza, lCiff Gil and colleagues, with an educational eduard from [email or web address]. Physical exam (Primary Care) Vital Signs: Last Vital Signs Temp 97.1 F 12/22/24 08:31 Pulse 56 12/22/24 08:31 BP 120/76 12/22/24 08:31 Pulse Ox 97 12/22/24 08:31 Oxygen Delivery Method Room Air 12/22/24 08:31 BMI result Body Mass Index 23.4 Tobacco/Smoking Status: Tobacco use Status Tobacco use date assessed 12/22/24 12/22/24 08:33 Patient Tobacco Use Status Never used Tobacco 12/22/24 08:43 e-Cigarette/Vaping Use Never Used 12/22/24 08:43 PHQ-9: PHQ-9 Score PHQ-9: Total score 0 12/22/24 08:43 Thrive Assessment: Date of Thrive Assessment Date Thrive assessed 12/22/24 12/22/24 08:33 Coding Level of Care Code Est Pt Level 4 (26199) Est Pt Prev Care >65y(04592) Diagnoses Routine medical exam Z00.00 Essential hypertension I10 Aortic stenosis I35.0 Coronary artery disease I25.10 Hyperlipidemia E78.5 Assessment & Plan Assessment & Plan (1) Routine medical exam: Code(s): Z00.00 - Encounter for general adult medical examination without abnormal findings Category: Medical Plan: 79-year-old male presenting for annual physical exam (2) Essential hypertension: Code(s): I10 - Essential (primary) hypertension Category: Medical Plan: Controlled. Continue lisinopril 2.5 mg daily. Low-sodium diet (3) Aortic stenosis: Code(s): I35.0 - Nonrheumatic aortic (valve) stenosis Category: Medical Plan: Asymptomatic. S/p bio valve. Continue following with Cardiology/Cardiac surgery. Advised to have notes sent to office (4) Coronary artery disease: Code(s): I25.10 - Atherosclerotic heart disease of [place] coronary artery without angina pectoris Category: Medical Plan: Stable, no chest pain. Continue ASA pravastatin (5) Hyperlipidemia: Code(s): E78.5 - Hyperlipidemia, unspecified Category: Medical Plan: Reasonably controlled. Last LDL 101. Continue pravastatin Plan Routine screening labs as ordered below No longer undergoing colonoscopy Continue following for annual skin exams and use sun protection Annual eye exams Wear seat belt in car Recommend regular exercise and healthy diet Follow up in 6 months Orders: Orders Basic Metabolic Panel 6 Months D50.9 - Iron deficiency anemia, unspecified, E78.5 - Hyperlipidemia, unspecified, I10 - Essential (primary) hypertension, I25.10 - Atherosclerotic heart disease of [place] coronary artery without angina pectoris, Z00.00 - Encounter for general adult medical examination without abnormal findings Lipid Panel 6 Months D50.9 - Iron deficiency anemia, unspecified, E78.5 - Hyperlipidemia, unspecified, I10 - Essential (primary) hypertension, I25.10 - At herosclerotic heart disease of [place] coronary artery without angina pectoris, Z00.00 - Encounter for general adult medical examination without abnormal findings Complete Blood Count Auto Diff 6 Months D50.9 - Iron deficiency anemia, unspecified, E78.5 - Hyperlipidemia, unspecified, I10 - Essential (primary) hypertension, I25.10 - Atherosclerotic heart disease of [place] coronary artery without angina pectoris, Z00.00 - Encounter for general adult medical examination without abnormal findings
[2024-12-22 08:31] VITALS: BP 120/76; PULSE 56; TEMP 36.2; O2SAT 97; BMI 23.4
--- OUTSIDE RECORDS SUMMARY | 2024-12-22 09:01 | XMS_ITS | Data Portability ---
Author Organization [facility] Ulysses Noriega [facility], [facility] Address [address] [place] [address] Assessment No assessment recorded. Plan of Treatment Reminders Order Date Submit Date Provider Last Modified By Organization Details Last Modified Time Details Appointments None recorded. Lab None recorded. Referral None recorded. Procedures None recorded. Surgeries total shoulder arthroplast y (SURG) 2024 025 [email or web address] Not available 5 17:25:48 Imaging XR, shoulder, 2 or more view - L shoulder 4 view rm 214 2024 025 [email or web address] [facility], [address] [facility], [place], [address], 5 16:11:32 Medication Orders None recorded. Patient TargetsNo targets recorded. Patient InstructionsNo instructions recorded. Reason for Referral None Reported. Results Created Date Observation Date Name Description Value Unit Range Abnormal Flag Note LastModifiedBy Organization Detail LastModifiedTime 03/20/1903/20/2024 XR, shoul everardo, 2 or more view http:/ [email or web address] ?Encry pted=s hAaTro YD8dLq bEUv6g %2BXZw aYqtaq 0bqfl% 2Fg9IQ a4ajBk vP9nXo QUaueC m3YtLR FvZlgJ JJ8mAn HZtai3 1s4987 AC0Kqb 32MUaC kKiQtr MwF INTERFACE [facility] [address], [place], [address], 03/20/2024 10:22:50 03/20/19 25 03/20/2024 XR, shoul everardo, 2 or more view http:/ [email or web address]:[email or web address] ?Encry pted=s hAaTro YD8dLq bEUv6g %2BXZw aYqtaq 0bqfl% 2Fg9IQ a4ajBk vP9nXo QUaueC m3YtLR FvZlgJ JJ8mAn HZtai3 0d6019 AC0Kqb 32MUaC kKiQtr MwF INTERFACE [facility] [address], [place], [address], 03/20/2024 10:22:52 Result Notes Documentation Provider Name and Address Organization Details Recorded Time Xr, Shoulder, 2 Or More View : [email or web address]? Encrypted=afEfFmpMZ9pXbhY Uv6g%5AVBkvXokzx4qfel%2Fg 6KFu9tfMirV0kVxSNnhoJq7Pk GESrYrySZV7lEgSAxzo47d962 5SP2Gvw85UCbPvXmMbeIqX Not Available [facility] 03/20/2024 10:22: 51 Xr, Shoulder, 2 Or More View : [email or web address]? Encrypted=onPgDrvIQ5gVquL Uv6g%2IEJkdEbxer0uwpe%2Fg 9LOh0kwDhqJ5qNkUJkwkWj5Mb ZLRvLmxCIA7jAlYCjie27r060 1QX6Apq66FXaGsVtIrnKoQ Not Available [facility] 03/20/2024 10:22: 53 Problems Name Problem SNOMED Code Status Onset Date Resolution Date Notes Provider Name and Address Organization Details Recorded Time Osteoarthrosis of the carpometacarpal joint of the thumb 96588826 Active 2023 Esther Hyman, PROGRAM THERAPIST [address], [address], [facility] 14:54:33 Problem Notes None recorded. Procedures Surgical History Date Name Laterality Status Provider Name and Address Organization Details Recorded Time 5 Sports Shoulder 4&1 completed Kannan Braden PA-C [address], [place], [address], [facility] 04/26/2024 10:42:45 4 Small Joint Kenalog Injection, L/R completed Esther Hyman, PROGRAM THERAPIST [address], [place], [address], [facility]3] [facility] 07/19/2023 14:54:25 Imaging Results None recorded. Procedure Notes None recorded. Medical Equipment None [...] Updated DateTime 03/20/2024 165.1 cm 25 kg/m2 88527.86 g COOPER VANDANA [facility] 03/20/2024 10:12:21 Date Recorded Body height Body mass index (BMI) Body weight Provider Name and Address Organization Details Last Updated DateTime 04/26/2024 165.1 cm 25 kg/m2 73312.86 g Capri Vandana [facility] 04/26/2024 13:12:29 Date Recorded Body height Body mass index (BMI) Body weight Provider Name and Address Organization Details Last Updated DateTime 07/19/2023 165.1 cm 25 kg/m2 75080.86 g NALLELY GAMEZ [facility] 07/19/2023 14:23:11 Social History None recorded. Functional Status None recorded. Mental Status None recorded. Family History Nothing Reported. Medical History Condition Response Coronary Artery Disease N Anxiety/Depression N Emphysema N COPD N Pacemaker N Vascular Disease N Heart Trouble Y Gastrointestinal Disease N Autoimmune disease N Inflammatory Joint disease N Orthotics N Arthritis N Blood Clot N Acid Reflux (GERD) N Cancer Y Stroke N Circulation Problems N Rheumatoid Arthritis N Arrhythmia N Headaches N Fibromyalgia N Allergies/Hayfever N Breathing or lung disorders N Nerve Disorders N Thyroid Problems N Kidney/Bladder Problems N Anemia N Heart Attack (CO) N Cholesterol N Diabetes N Bleeding Disorder N Seizures/Epilepsy N AIDS/HIV N Congestive Heart Failure (CHF) N Asthma N Peripheral Vascular Disease N Sleep Apnea N Hepatitis N Heart Disease N Pulmonary Embolism N Hypertension N Osteoporosis N Past Encounters Encounter ID Performer Location Encounter Start Date Encounter Closed Date Diagnosis/Indication Diagnosis SNOMED-CT Code Diagnosis ICD10 Code Diagnosis IMO Codes Diagnosis Note [id number] HERNAN Mejia [address] [place] [address] 07/19/2023 14:01:23 07/30/2023 09:57:50 Osteoarthrosis of the carpometacarpal joint of the thumb 61175588 M18.9 [id number] MD VICKIE Kellynisegun [address] [place] [address] 03/20/2024 10:05:53 03/28/2024 16:11:32 Pain of left shoulder joint 4996041267 8808262 M25.512 [id number] Osteoarthr itis of left glenohumeral joint 3787562582 301642 M19.147 [id number] LEANN Montalvo [address] [place] [address] 04/26/2024 13:03:06 05/14/2024 11:41:26 Osteoarthritis of joint of left shoulder region 3382603782 10305 M19.486 [id number] Health Concerns Section Related Observation LastModified by Organization Detai ls LastModified Time None Recorded Concern Status LastModified by Organization Details LastModified Time None Recorded Advance Directives Directive None Recorded Payers Insurance Date Sequence Insurance Name Policy Number Policy Hopkins Covered Member ID Hopkins Member ID Guarantor Name 04/26/2024 1 [place] [facility] Rey Bailey [id number] Rey Bailey 05/14/2024 2 [facility] - PLAN 1 (MEDICARE SUPPLEMENT) [id number] Rey Bailey [id number] Rey Bailey Notes Date Note Type Note Provider Name and Address Organization Details Recorded Time 07/19/2023 text/html ROS as noted in the HPI Uri is a pleasant 78-year-old gentleman who presents today for evaluation of his right thumb. He had a previous cortisone injection for first [facility] arthritis which gave him about a year relief. He is here today for further evaluation. Esther Hyman, PROGRAM THERAPIST [address], [place], [address], [facility] 07/19/2023 14:54:56 03/20/2024 text/html [...] the Left shoulder ordered and obtained at [facility] today were reviewed during the visit. These demonstrate severe glenohumeral arthritis with complete loss glenohumeral joint space. Some medialization of the joint line. Type II if not type III acromion. No brenton proximal migration humeral head. A2 versus B3 glenoid morphology, at least moderate glenoid retroversion and posterior subluxation suggested on axillary view. Impression: 78-year-old wsbgl-icgv-oadospwd gentleman with history of previous open [employer] [...] 3D CT scan for preoperative planning purposes. [employer] speech recognition science and operations officer software was used to create portions of this document. An attempt at proofreading has been made to minimize errors. Please call for corrections. Aliyah Fallon MD [address] [place] [address] [address] [facility], [place], [address], [facility]3] [facility] 04/06/2024 16:07:45 04/26/2024 text/html I am seeing the patient today under the supervision of Dr. Mcdermott who was available but who did not see the patient. HPI: Patient returns for follow-up of left shoulder pain. Patient has noted glenohumeral joint arthritis of the left shoulder. Patient has been doing well with conservative management. Past family, medical, social history and review of systems has been reviewed, updated and is located in the patient s chart. Examination: The patient is well [...] versus total shoulder arthroplasty. Activity modification discussed. P.r.n. Tylenol or NSAIDs can be used. Discussed the role of injection therapies. Injected the glenohumeral joint of the left shoulder. Follow up p.r.n. Kannan Braden PA-C [address] [facility] [address], [place], [address], [facility] 04/26/2024 14:04:28
== END 2024-12-22 09:20 | disposition home or self-care (01) ==
LOC: HO.HMCHD 08:32
PROVIDERS: PCP Internal Medicine; Visit Provider Physician Assistant
DX: Z00.00 Encounter for general adult medical examination without abnormal findings (principal); I10 Essential (primary) hypertension; I35.0 Nonrheumatic aortic (valve) stenosis; I25.10 Atherosclerotic heart disease of native coronary artery without angina pectoris; E78.5 Hyperlipidemia, unspecified

== ENCOUNTER → 2024-12-22 08:32 | Outpatient (BNVA) | payer MEDICARE, OTHER, SELFPAY | PROVIDERS: PCP Internal Medicine; Visit Provider Physician Assistant | DX: Z00.00 Encounter for general adult medical examination without abnormal findings (principal); I10 Essential (primary) hypertension; I35.0 Nonrheumatic aortic (valve) stenosis; I25.10 Atherosclerotic heart disease of native coronary artery without angina pectoris; E78.5 Hyperlipidemia, unspecified; Z79.82 Long term (current) use of aspirin; Z79.899 Other long term (current) drug therapy; Z13.39 Encounter for screening examination for other mental health and behavioral disorders; Z13.30 Encounter for screening examination for mental health and behavioral disorders, unspecified | CPT/HCPCS: 96127; 99397 ==